=== PATIENT | male | born 1950 | race Caucasian/White ===

== ENCOUNTER 2017-08-26 12:30 | Outpatient (CLI) | payer MEDICARE ==
--- NOTE | 2017-08-26 16:05 | PET ---
PET CT FROM SKULL TO MID THIGH: 08/26/17 INDICATION: History of rectal cancer and new diagnosis of lung cancer. RADIOPHARMACEUTICAL: 10.88 millicuries of F18 FDG IV. FINDINGS: There is decrease in hypermetabolic activity involving the right MCA distribution consistent with gifty may's history of prior right MCA infarct. No hypermetabolic lymphadenopathy or mass seen within the neck. There is a hypermetabolic mass within the right upper lobe measuring 3.5 x 3.2 cm with peak SUV upta ke of 9.02 and a mean uptake of 6.43. There is some pleural parenchymal scarring involving both lung apices without associated hypermetabolic activity. No hypermetabolic pleural effusion is evident. N o hypermetabolic lymphadenopathy is evident. No hypermetabolic mass or lymphadenopathy is evident within the abdomen and pelvis. There is some mi ld activity seen within the region of the patient's left lower quadrant ostomy. There is presacral s oft tissue thickening involving the lower pelvis which is likely related to prior therapy. No hyperm etabolic uptake is seen within the region of the lower rectum. There is background activity seen within the region of the kidneys with excretory activity seen with in the renal collecting systems. No hypermetabolic skin or osseous lesion is identified. IMPRESSION: 1. Hypermetabolic right upper lobe mass consistent with malignancy. No regional hypermetabolic lymphadenopathy is evident. 2. Presacral soft tissue thickening involving the lower pelvis without associated hypermetaboli c activity likely related to therapy. 3. Mild activity is seen involving the ostomy site of the left lower quadrant is likely physiol ogic in nature. POS: [facility]
--- OUTSIDE RECORDS SUMMARY | 2017-08-28 07:25 | XMS | Clinical Summary ---
:1950 Author Organization [facility] Address [address] [place] [address] Phone Care Team Providers Name Role Phone , Primary Care Provider Unavailable Allergies Not on File Current Medications Not on file Active Problems Not on file Social History Tobacco Use Types Packs/Day Years Used Date Never Assessed Sex Assigned at Date Recorded Not on file Last Filed Vital Signs Not on file Plan of Treatment Not on file Results Not on filefrom Last 3 Months
== END 2017-08-26 12:31 | disposition home or self-care (01) ==
LOC: PET 12:30
PROVIDERS: ATTEND Internal Medicine Hematology & Oncology
DX: C34.90 Malignant neoplasm of unspecified part of unspecified bronchus or lung (principal)
CPT/HCPCS: 78815; A9552

== ENCOUNTER 2018-01-28 10:06 | Outpatient (CLI) | payer MEDICARE ==
[2018-01-28 10:42] LABS: Estimated GFR-MDRD - POC Greater than 90
--- NOTE | 2018-01-28 11:58 | CT ---
CT CHEST WITH CONTRAST: History: C34.1 - lung cancer, status post radiation therapy. FINDINGS: The right upper lobe mass with the pleural tail is decreased in size measuring 3.5 x 2.4 x 2.1 cm, pr eviously 4.3 x 3.3 cm. There is a new airspace opacity caudad to this in the posterior segment right upper lobe likely treatment in nature. Right upper lobe bronchiectasis is present. Moderate parasepta l emphysema. There is scarring in the left lung apex, similar to the PET CT exam. There is atelectasis in the righ t lower lobe. A few tree and bud opacities, posterior segment right upper lobe, may be infectious in nature. No new suspicious pulmonary nodule. No supraclavicular adenopathy. Port catheter tip is in the inferior SVC. No mediastinal adenopathy. Opacity in the aorta measures 3.6 cm. Moderate atherosclerotic plaque of t he thoracic and abdominal aorta. The remainder of the upper abdomen is unremarkable. No acute osseous abnormality. IMPRESSION: 1. Moderate interval size decrease of the right upper lobe mass indicating partial treatment response . No new adenopathy. No new suspicious mass. 2. Post treatment change in the right upper lobe just caudad to the right upper lobe mass. 3. New few tree in bud opacities in the posterior right lower lobe may be infectious or aspiration in nature. POS: [facility]
[2018-01-28] MEDS ORDERED: Iopamidol 370 76% 100 ML VIAL ONE (12:49)
== END 2018-01-28 10:07 | disposition home or self-care (01) ==
LOC: CT 10:06
PROVIDERS: ATTEND Radiology Radiation Oncology
DX: C34.11 Malignant neoplasm of upper lobe, right bronchus or lung (principal)
CPT/HCPCS: 71260; 82565

== ENCOUNTER 2018-08-03 12:21 | Outpatient (CLI) | payer MEDICARE ==
--- NOTE | 2018-08-03 16:02 | CT ---
CHEST CT WITHOUT CONTRAST: HISTORY: Status post radiation therapy. Lung cancer. COMPARISON: 01/28/2018 FINDINGS: Limited evaluation of the mediastinum by lack of IV contrast. There is stable atherosclerosis of a m ildly prominent ascending thoracic aorta, measuring 4.3 cm anteroposterior x 3.6 cm mediolateral. A prosthetic aortic valve is noted. Extensive coronary calcifications. Heart size is within normal li mits. No significant pericardial fluid. No definite mediastinal mass, lymphadenopathy, or hematoma. The visualized upper solid organs are grossly unremarkable. No lytic or blastic lesions in the osseous structures. There is bilateral apical pleural thickening. The degree of opacification in the lung apices has sli ghtly progressed. Findings may be due to post treatment change. There continues to be a spiculated mass in the right upper lobe, currently measuring 1.9 cm anteroposterior x 3.1 cm mediolateral (previ ously measuring 3.2 cm mediolateral x 2.2 cm anteroposterior). Adjacent parenchymal changes extendin g posteriorly and inferiorly are noted. There is a second, more focal opacity at the posterior aspec t of the right upper lobe, currently measuring 4.3 x 1.6 cm (previously measuring 3.8 x 2.1 cm. Ther e is some bronchiectasis involving the right upper lobe. Bullous changes in both upper lobes are not ed. No suspicious nodules in the middle lobe. No suspicious nodules in the left or right lower lobe. At electatic changes in both lower lobes are identified. Nonspecific pleural-based nodule in the left lower lobe, measuring 4 mm. IMPRESSION: 1. Persistent right upper lobe mass. Adjacent post treatment changes in the right lung parenchyma are redemonstrated. There is presumed post treatment change in the left lung apex. 2. No new masses are appreciated. Nonspecific 4 mm nodule in the left lower lobe. POS: [facility]
== END 2018-08-03 12:22 | disposition home or self-care (01) ==
LOC: BICCT 12:21
PROVIDERS: ATTEND Radiology Radiation Oncology
DX: C34.11 Malignant neoplasm of upper lobe, right bronchus or lung (principal); R91.1 Solitary pulmonary nodule; Z92.3 Personal history of irradiation
CPT/HCPCS: 71250

== ENCOUNTER 2019-02-11 10:37 | Outpatient (CLI) | payer MEDICARE ==
--- NOTE | 2019-02-11 12:41 | CT ---
Contrast-enhanced CT images chest HISTORY: patient with previous malignant neoplasm of lung. Comparison made to previous exam from 01/28/2018. Contrast-enhanced CTA chest demonstrates calcification of the aorta. Coronary artery calcification se en. There is a area of scarring seen in the right upper lobe posterior aspect. This is not significantly changed since the previous exam. Area of scarring slightly inferior to this appear to be slightly smaller. Some areas of left apical pleural thickening also present. IMPRESSION: Right upper lobe post therapy mass. CT appearance is stable. No interval increasing rose s or lesions seen.
== END 2019-02-11 10:38 | disposition home or self-care (01) ==
LOC: CT 10:37
PROVIDERS: ATTEND Radiology Radiation Oncology
DX: C34.11 Malignant neoplasm of upper lobe, right bronchus or lung (principal); R91.8 Other nonspecific abnormal finding of lung field
CPT/HCPCS: 71260; 82565

== ENCOUNTER 2019-08-05 09:17 | Outpatient (CLI) | payer MEDICARE ==
[2019-08-05 10:01] LABS: Estimated GFR-MDRD - POC Greater than 90
[2019-08-05] MEDS ORDERED: Iopamidol 370 76% 100 ML VIAL ONE (10:15)
--- NOTE | 2019-08-05 13:00 | CT ---
CT CHEST WITH CONTRAST WITH MULTIPLANAR RECONSTRUCTION: INDICATIONS: Lung cancer. Followup of right lung mass. COMPARISON: CT chest from 02/11/2019. FINDINGS: A lung mass at the posterior aspect of the right lung apex is again noted. This mass extends to the p leural surface. There is hazy peripheral parenchymal opacity surrounding this mass. On coronal imagin g this mass does not appear significantly changed from 02/11/2019. It continues to measure 4.3 cm in greatest dimension in the coronal plane by 1.7 mm craniocaudal in the coronal plane. These measuremen ts are stable from the prior exam. The hazy parenchymal opacity surrounding this mass also has a jasiel lar appearance. This may represent post radiation change. There is a nodular component along the fiss ure, along the inferior margin of this mass, which appear stable. There are numerous small blebs seen in the extreme apices bilaterally. Left apical pleural thickening is also stable. The lungs otherwise appear well aerated and clear. Mild atelectasis in the anterior left lower lobe i s noted. The mediastinum is unremarkable. Atherosclerotic calcification of the thoracic aorta is again noted. The osseous structures are unremarkable. Images through the upper abdomen are unremarkable. IMPRESSION: Stable chest CT findings. POS: [facility]
== END 2019-08-05 09:18 | disposition home or self-care (01) ==
LOC: CT 09:17
PROVIDERS: ATTEND Radiology Radiation Oncology
DX: C34.11 Malignant neoplasm of upper lobe, right bronchus or lung (principal)
CPT/HCPCS: 71260; 82565; Q9967

== ENCOUNTER 2020-08-09 09:43 | Outpatient (CLI) | payer MEDICARE ==
[~2020-08-09 09:43] MED LIST: Iopamidol-370 76% 500 ML 1 ML ONE
[2020-08-09 10:15] LABS: Estimated GFR-MDRD - POC Greater than 90
--- NOTE | 2020-08-09 12:37 | CT ---
CT CHEST WITH CONTRAST: INDICATION: Right upper lobe lung cancer. Post radiation. COMPARISON: Comparison is made to prior chest CT of 08/05/2019. FINDINGS: The right apical mass has increased in size and there is now increasing opacification in the right ap ex when compared to the prior study. This apical mass measures 7 cm width in the coronal plane by ap proximately 4.6 cm craniocaudal in the coronal plane. No evidence of rib involvement. Lung toussaint otherwise clear. No effusion or infiltrate. Atherosclerotic changes in the thoracic aor ta. Nonspecific mediastinal lymph nodes. Images through the upper abdomen unremarkable. Thoracic v ertebrae maintain height and alignment. Postop sternotomy change. IMPRESSION: Enlarging soft tissue mass in the right apex when compared to the prior exam. POS: [facility]
== END 2020-08-09 09:44 | disposition home or self-care (01) ==
LOC: BICCT 09:43
PROVIDERS: ATTEND Radiology Radiation Oncology
DX: C34.11 Malignant neoplasm of upper lobe, right bronchus or lung (principal); M79.89 Other specified soft tissue disorders
CPT/HCPCS: 71260; 82565; Q9967

== ENCOUNTER 2021-02-21 13:41 | Outpatient (CLI) | payer MEDICARE | END 2021-02-21 13:42 | disposition home or self-care (01) | LOC: BICCT 13:41 | PROVIDERS: ATTEND Radiology Radiation Oncology | DX: C34.11 Malignant neoplasm of upper lobe, right bronchus or lung (principal); J43.9 Emphysema, unspecified; I77.810 Thoracic aortic ectasia; N28.89 Other specified disorders of kidney and ureter | CPT/HCPCS: 71260; 82565; Q9967 ==